=== PATIENT | male | born 1980 | race Caucasian/White ===

== ENCOUNTER 2021-03-18 11:48 | Emergency (ER) | payer OTHER ==
[2021-03-18 12:32] LABS: BILIRUBIN 1+ mg/dL (NEGATIVE); BLOOD NEGATIVE Ery/uL (NEGATIVE); CLARITY CLEAR (CLEAR); COLOR YELLOW (YELLOW); GLUCOSE (U) NORMAL (NORMAL); LEUKOCYTES NEGATIVE Leu/uL (NEGATIVE); NITRITE NEGATIVE (NEGATIVE); PROTEIN 1+ mg/dL (NEGATIVE); SPECIFIC GRAVITY 1.025 (1.001-1.030); pH 6.5 (5.0-9.0)
[2021-03-18 12:48] LABS: BASOPHIL 0.7 % (0-2); EOSINOPHIL 2.6 % (0-5); HCT 38.6 % (42.0-52.0); HGB 13.5 g/dl (13.2-18.0); MCH 30.8 pg (25.0-31.0); MCV 87.9 fL (78.0-100.0); MONOCYTE 10.7 % (0-12); MPV 9.4 fL (6.0-9.5); NEUTROPHIL 65.5 % (41-80); NRBC 0; PLT 235 K/uL (150-400); RBC 4.39 M/uL (4.70-6.00); RDW 12.3 % (11.5-14.0); WBC 9.1 K/uL (4.0-10.5)
[2021-03-18 12:58] LABS: SQUAMOUS EPITHELIAL CELLS RARE; URINARY RBC RARE; URINARY WBC RARE
[2021-03-18 13:39] LABS: ALBUMIN 3.3 g/dL (3.4-5.0); BILIRUBIN - TOTAL 0.3 mg/dL (0.2-1.0); BUN/CREAT RATIO (CALC) 14.1 RATIO; CREATININE 0.71 mg/dL (0.67-1.17); GLOBULIN (CALCULATION) 3.5 g/dL; MAGNESIUM 1.9 mg/dL (1.8-2.4); POTASSIUM 3.1 mmol/L (3.5-5.1); TOTAL PROTEIN 6.8 g/dL (6.4-8.2)
[2021-03-18] MEDS ORDERED: FLAGYL500 MG PO (15:31)
[2021-03-18] MEDS ORDERED: ZOFRAN4 M1 PO (15:31)
[2021-03-18] MEDS ORDERED: BENTYL10 MG PO (15:31)
== END 2021-03-18 15:58 | disposition home or self-care (01) ==
LOC: FER 11:48
PROVIDERS: Emergency Medicine
DX: R10.31 Right lower quadrant pain (principal); R11.2 Nausea with vomiting, unspecified; R19.7 Diarrhea, unspecified; E86.0 Dehydration; K52.9 Noninfective gastroenteritis and colitis, unspecified; K80.80 Other cholelithiasis without obstruction; F17.210 Nicotine dependence, cigarettes, uncomplicated; Z88.5 Allergy status to narcotic agent
CPT/HCPCS: 36415; 80053; 81001; 83690; 83735; 83880; 85025; J1885; J2405; J7030; Q9967